=== PATIENT | female | born 1970 | race Two or more races ===

== ENCOUNTER 2022-05-28 21:51 | Emergency (ER) | payer OTHER ==
[~2022-05-28] VITALS: Ht 160 cm; Wt 63.5 kg
[2022-05-28] MEDS ORDERED: PREDNISONE20 MG PO (22:27)
== END 2022-05-29 04:29 | disposition home or self-care (01) ==
LOC: ER 21:51
DX: K52.89 Other specified noninfective gastroenteritis and colitis (principal); Z88.8 Allergy status to other drugs, medicaments and biological substances

== ENCOUNTER 2022-12-29 05:37 | Emergency (ER) | payer OTHER ==
[~2022-12-29] VITALS: Ht 157.5 cm; Wt 59.0 kg
[~2022-12-29 05:37] MED LIST: PREDNISONE20 MG PO
[2022-12-29] MEDS ORDERED: FAMOTIDINE20 MG PO (06:30)
[2022-12-29] MEDS ORDERED: RINVOQ45 MG PO (06:30)
[2022-12-29] MEDS ORDERED: PROTONIX40 MG PO (06:31)
[2022-12-29 08:37] LABS: HEMATOCRIT 39.3 % (36.0-45.00); HEMOGLOBIN 13.2 g/dL (12.0-15.00); MEAN CELL VOLUME 89.4 fL (80.00-100.00); MEAN CORPUSCULAR HEMOGLOBIN 30.1 pg (27.00-32.0); MEAN CORPUSCULAR HGB CONC 33.7 g/dl (32.0-36.0); PLATELET COUNT 240 K/uL (150-450); RED BLOOD COUNT 4.39 M/uL (4.00-6.00)
== END 2022-12-29 09:25 | disposition home or self-care (01) ==
LOC: ER 05:37
DX: J10.1 Influenza due to other identified influenza virus with other respiratory manifestations (principal); Z88.8 Allergy status to other drugs, medicaments and biological substances; Z20.822 Contact with and (suspected) exposure to COVID-19